=== PATIENT | male | born 1950 | race Caucasian/White ===

== ENCOUNTER 2021-01-25 15:31 | Emergency (ER) | payer MEDICARE, OTHER ==
[~2021-01-25] VITALS: Ht 170.2 cm; Wt 81.6 kg
--- NOTE | 2021-01-25 15:31 | NUR ---
BIB [facility] 58 FROM HOME PT C/O DIZZY SPELLS SINCE THIS MORNING, NEW MEDICATION GIVEN LIDODERM PATCH TO L UE NERVE PAIN. PATIENT IS A&OX4 AND IS STABLE. BREATHING NON LABORED. VITAL SIGNS WITHIN NORMAL LIMITS. PT SENT TO ER BED 2 ATTACHED TO MONITOR. WILL CONTINUE TO MONITOR.
--- NOTE | 2021-01-25 15:42 | NUR ---
LAB AT BEDSIDE
[2021-01-25 17:27] LABS: BASOPHILS # (AUTO) 0.1 K/uL (0.0-0.2); BASOPHILS % (AUTO) 0.9 % (0.0-2.0); EOSINOPHILS % (AUTO) 1.4 % (0.0-6.0); HEMATOCRIT 37 % (39-51); HEMOGLOBIN 11.3 g/dL (13.5-17.5); LYMPHOCYTES # (AUTO) 1.1 K/uL (0.8-4.8); LYMPHOCYTES % (AUTO) 14.1 % (20.0-44.0); MEAN CORPUSCULAR HGB CONC 31 g/dl (31.0-36.0); MEAN CORPUSCULAR VOLUME 66 fL (80-96); MONOCYTES # (AUTO) 0.4 K/uL (0.1-1.30); MONOCYTES % (AUTO) 5.2 % (2.0-12.0); NEUTROPHILS % (AUTO) 78.4 % (43.0-81.0); PLATELET COUNT (AUTO) 163 K/uL (150-450); RED BLOOD CELL COUNT(AUTO) 5.56 MIL/uL (4.5-6.0); WHITE BLOOD COUNT (AUTO) 7.7 K/uL (4.3-11.0)
[2021-01-25 17:39] LABS: CALCIUM, SERUM 8.5 mg/dL (8.5-10.1); CARBON DIOXIDE 26 mmol/L (21-32); CHLORIDE 100 mmol/L (98-107); CREATININE 1.1 mg/dL (0.6-1.3); GLUCOSE 94 mg/dL (74-106); POTASSIUM 3.6 mmol/L (3.5-5.1); SODIUM SERUM 134 mmol/L (136-145); UREA NITROGEN, BLOOD 15 mg/dL (7-18)
[2021-01-25 17:55] LABS: ABG BASE EXCESS -0.9 mmol/L; ABG PCO2 40.7 mmHg (35.0-45.0); ABG PH 7.389 (7.350-7.450); COHb 2.2 % (0.5-1.5); MetHb 0.2 % (0.0-1.5); O2Hb 93.9 % (94.0-97.0); SITE, ABG Right Radial; VENT MODE, BG ROOM AIR
[2021-01-25 18:55] LABS: LYMPHOCYTES % (MANUAL) 15 % (16-48); MONOCYTES % (MANUAL) 7 % (0-11.0); NEUTROPHILS % (MANUAL) 78 (42-76)
--- NOTE | 2021-01-25 19:26 | NUR ---
Patient IV was removed. Patient discharged to home in stable condition. Written and verbal after care instructions given. Patient verbalizes understanding of instruction.
[2021-01-25 19:37] VITALS: BP 133/75
== END 2021-01-25 19:26 | disposition home or self-care (01) ==
LOC: ER 16:44
DX: R42 Dizziness and giddiness (principal); I10 Essential (primary) hypertension; J44.9 Chronic obstructive pulmonary disease, unspecified; Z88.0 Allergy status to penicillin
CPT/HCPCS: 36415; 36600; 71045-TC; 80048-TC; 82803-TC; 84484-TC; 85025-TC